=== PATIENT | male | born 1965 | race Hispanic/Latino ===

== ENCOUNTER 2023-04-04 11:01 | Emergency (ER) | payer OTHER ==
[~2023-04-04] VITALS: Ht 172.7 cm; Wt 71.7 kg
[2023-04-04] MEDS ORDERED: 0.9%NACL 1000ML 1,000 ML IV ONE (11:30)
[2023-04-04] MEDS ORDERED: ONDANSETRON 4MG INJ IVP ONE (11:30)
[2023-04-04] MEDS ORDERED: MORPHINE 4 MG SYG IVP ONE (11:30)
[2023-04-04 11:57] LABS: BASOPHILS # (AUTO) 0.02 K/uL (0.00-0.20); BASOPHILS % (AUTO) 0.5 % (0.0-5.0); EOSINOPHILS # (AUTO) 0.02 K/uL (0.00-0.70); EOSINOPHILS % (AUTO) 0.5 % (0.0-8.0); HEMATOCRIT 42.3 % (42-54); IMMATURE GRANULOCYTE ABSOLUTE 0.01 K/uL (0-1); LYMPHOCYTES # (AUTO) 1.1 K/uL (1.0-4.8); MEAN CORPUSCULAR HEMOGLOBIN 30.7 pg (27.0-33.0); MEAN CORPUSCULAR HGB CONC 33.6 g/dL (32.0-36.0); MEAN CORPUSCULAR VOLUME 91.6 fL (79-99); MONOCYTES # (AUTO) 0.6 K/uL (0.1-1.0); NEUTROPHILS # (AUTO) 2.4 K/uL (1.8-7.7); NEUTROPHILS % (AUTO) 58.8 % (40.0-77.0); PLATELET COUNT (AUTO) 210 K/uL (130-400); RED BLOOD CELL COUNT(AUTO) 4.62 MIL/uL (4.50-6.20); WHITE BLOOD COUNT (AUTO) 4.1 K/uL (4.8-10.8)
[2023-04-04 12:12] LABS: ALBUMIN 4.1 g/dL (3.5-5.0); BILIRUBIN,TOTAL 0.7 mg/dL (0.2-1.0); POTASSIUM 3.6 mmol/L (3.5-5.1); TOTAL PROTEIN, SERUM 8.4 g/dL (6.0-8.3)
[2023-04-04 13:02] LABS: ADD UA MICROSCOPIC YES; APPEARANCE,URINE CLEAR (CLEAR); BILIRUBIN,URINE NEGATIVE (NEGATIVE); COLOR,URINE YELLOW (YELLOW); GLUCOSE, URINE (UA) NEGATIVE (NEGATIVE); KETONES,URINE NEGATIVE (NEGATIVE); LEUKOCYTE ESTERASE ,URINE NEGATIVE Leu/uL (NEGATIVE); NITRATE,URINE NEGATIVE (NEGATIVE); OCCULT BLOOD,URINE LARGE (NEGATIVE); PROTEIN,URINE 10 mg/dL (NEGATIVE); UROBILINOGEN,URINE 0.2 mg/dL (0.2-1.0)
[2023-04-04 13:04] LABS: BACTERIA,URINE RARE /HPF (None Seen); MUCUS,URINE RARE LPF (None Seen); RBC,URINE TNTC /HPF (0-1); SQUAMOUS EPITHELIAL CELL,UR RARE /HPF (0-2); WBC,URINE 0-1 /HPF (0-1)
[2023-04-04] MEDS ORDERED: ACET-2893 PO (15:43)
[2023-04-04] MEDS ORDERED: TAMS-1 PO (15:43)
[2023-04-04] MEDS ORDERED: LISI10TA24 PO (15:44)
[2023-04-04 16:00] VITALS: BP 154/91; PULSE 70; RESP 20; O2SAT 99
[2023-04-04] MEDS ORDERED: TAMSULOSIN HCL 0.4 MG CAP.ER.24H PO ONE (16:00)
== END 2023-04-04 17:08 | disposition home or self-care (01) ==
LOC: EDH 11:01
DX: N20.0 Calculus of kidney (principal); I10 Essential (primary) hypertension
CPT/HCPCS: 99285; 74176; 96374; 96361; 96375; 80053; 85025; 81001; 36415; J7030; J2405; J2270

== ENCOUNTER 2023-10-28 02:42 | Emergency (ER) | payer OTHER ==
[~2023-10-28] VITALS: Ht 172.7 cm; Wt 68.0 kg
[~2023-10-28 02:42] MED LIST: ACET-2893 PO; LISI10TA24 PO; TAMS-1 PO
[2023-10-28] MEDS: ACETAMINOPHEN 325 MG TAB PO ONE (04:36)
[2023-10-28 04:41] LABS: BASOPHILS # (AUTO) 0.02 K/uL (0.00-0.20); BASOPHILS % (AUTO) 0.2 % (0.0-5.0); HEMATOCRIT 43.7 % (42-54); IMMATURE GRANULOCYTE ABSOLUTE 0.03 K/uL (0-1); LYMPHOCYTES # (AUTO) 1.3 K/uL (1.0-4.8); LYMPHOCYTES % (AUTO) 13.7 % (21.0-51.0); MEAN CORPUSCULAR HEMOGLOBIN 30.5 pg (27.0-33.0); MEAN CORPUSCULAR HGB CONC 34.1 g/dL (32.0-36.0); MEAN CORPUSCULAR VOLUME 89.4 fL (79-99); MONOCYTES # (AUTO) 0.8 K/uL (0.1-1.0); MONOCYTES % (AUTO) 8.7 % (3.0-13.0); NEUTROPHILS # (AUTO) 7.5 K/uL (1.8-7.7); NEUTROPHILS % (AUTO) 77.1 % (40.0-77.0); PLATELET COUNT (AUTO) 204 K/uL (130-400); RED BLOOD CELL COUNT(AUTO) 4.89 MIL/uL (4.50-6.20); WHITE BLOOD COUNT (AUTO) 9.7 K/uL (4.8-10.8)
[2023-10-28 04:52] LABS: CREATININE 1.1 mg/dL (0.5-1.3); POTASSIUM 5.1 mmol/L (3.5-5.1)
[2023-10-28] MEDS: KETOROLAC 30MG VIAL (30MG/ML) IVP ONE (05:50)
[2023-10-28] MEDS: SOLU-MEDROL 125MG VIAL IVP ONE (05:50)
[2023-10-28] MEDS: CLINDAMYCIN IVPB 900MG/50ML 50 ML IV ONE (05:50)
[2023-10-28 07:27] VITALS: BP 132/76; PULSE 68; RESP 16; O2SAT 98
[2023-10-28] MEDS ORDERED: OXYC-38 PO (08:34)
[2023-10-28] MEDS ORDERED: PERID15L MM (08:34)
[2023-10-28] MEDS ORDERED: CLIN-141 PO (08:34)
== END 2023-10-28 08:58 | disposition home or self-care (01) ==
LOC: EDH 02:42
DX: K08.9 Disorder of teeth and supporting structures, unspecified (principal); J32.0 Chronic maxillary sinusitis; K05.30 Chronic periodontitis, unspecified; I10 Essential (primary) hypertension; Z79.899 Other long term (current) drug therapy; Z98.890 Other specified postprocedural states
CPT/HCPCS: 99285; 96365; 70486; 96375; 80048; 85025; 36415; J2919; J1885; J3490

== ENCOUNTER 2024-06-15 02:36 | Emergency (ER) | payer SELFPAY ==
[~2024-06-15] VITALS: Ht 170.2 cm; Wt 72.6 kg
[~2024-06-15 02:36] MED LIST changes: +CLIN-141 PO; +OXYC-38 PO; +PERID15L MM
[2024-06-15] MEDS ORDERED: AMLO-257 PO (04:13)
--- NOTE | 2024-06-15 04:14 | ERN ---
General Chief Complaint: Hypertension Stated Complaint: HYPERTENSION Time Seen by MD: 02:50 History of Present Illness Initial Comments 58M BIB EMS for concern for hypertension. Patient reports hx of HTN, but has been without hypertension meds for over a year. He currently has no complaints. BP 160/100 per EMS. Patient asymptomatic. Of note, patient is homeless and presents with an outside temp of 40F. Patient reports that his main objective is to get out of the cold tonight. Allergies: Coded Allergies: No Known Drug Allergies (Unverified Allergy, Unknown, 04/04/23) Home Meds Active Scripts Oxycodone HCl/Acetaminophen (Percocet 5-325 mg Tablet) 5 Mg-325 Mg Tablet, 1 EACH PO Q6H for pain, #16 TAB 0 Refills Prov:DAIANA BRITTON MD 10/28/23 Chlorhexidine Gluconate (Peridex Oral Rinse) 0.12 % Mwsh, 15 ML MM BID, #60 APPL Prov:DAIANA BRITTON MD 10/28/23 Clindamycin HCl (Clindamycin HCl) 300 Mg Capsule, 1 CAP PO QID for 10 Days, #40 CAP 0 Refills Prov:DAIANA BRITTON MD 10/28/23 Lisinopril (Lisinopril) 10 Mg Tablet, 1 TAB PO DAILY for 30 Days, #30 TAB 0 Refills Prov:AUBREY HENDERSON 04/04/23 Acetaminophen (Acetaminophen ER) 650 Mg Tablet.er, 650 MG PO TID, #30 TAB Prov:AUBREY HENDERSON 04/04/23 Tamsulosin HCl (Flomax) 0.4 Mg Cap.er.24h, 0.4 MG PO DAILY, #30 CAPSULE. Prov:AUBREY HENDERSON 04/04/23 Past Medical History Past Medical History: Hypertension, Kidney Stone Medical History Other: NOT TAKING ANY MEDICATIONS FOR HYPERTENSION Past Surgical History: None ROS Dictation CONSTITUTIONAL: No chills, no fever, no weakness, no diaphoresis, no malaise. HEAD/FACE: No signs of trauma. EENT: No eye pain, no blurred vision, no tearing, no double vision, no ear pain, no ear discharge, no nose pain, no nasal congestion, no throat pain, no throat swelling, no mouth pain. RESPIRATORY: No cough, no orthopnea, no SOB, no stridor, no wheezing. CARDIOVASCULAR: No chest pain, no edema, no palpitations, no syncope. GASTROINTESTINAL/ABDOMINAL: No abdominal pain, no constipation, no diarrhea, no nausea, no vomiting. GENITOURINARY: No abnormal discharge, no dysuria, no frequent urination, no hematuria. No complaints of pain in the genitals. MUSCULOSKELETAL: No back pain, no gout, no joint pain, no joint swelling, no muscle pain, no muscle stiffness, no neck pain. INTEGUMENTARY: No change in color, no change in hair/nails, no dryness, no lesion, no lumps, no rash. NEUROLOGICAL/PSYCH: No anxiety, not depressed, no emotional problem, no headache, no numbness, no pre-existing deficit, no history of seizures, no tremors, no weakness. HEMATOLOGIC/LYMPHATIC: Not anemic, no history of blood clots, no apparent bleeding, no bruising, glands not swollen. All Systems Negative, Except as Noted. Physical Exam Physical Exam Dictation VITAL SIGNS: Reviewed. GENERAL APPEARANCE: Alert, oriented x3, no acute distress. HEAD AND FACE: Non-traumatic. EYES: PERRL, pink conjunctivas, eyelid no trauma, anterior chamber clear. EARS: Pinnas intact and no signs of trauma or erythema. Ear canals clear and no discharge. TMs no erythema. NOSE: No discharge, no bleeding. OROPHARYNX: Mouth normal, teeth no caries, tongue pink. Pharynx clear, no erythema. Tonsils no exudates, no abscesses noted. Mucous membrane moist. NECK: Supple, non-tender, no thyromegaly, no masses, no JVD, no bruits. BREAST: Deferred. CHEST: No tenderness, no crepitus, no paradoxical movement, no retractions. LUNGS: Clear, well-ventilated, symmetric, no rales, no wheezing, no rhonchi, no stridor, good breath sounds bilaterally. HEART: Regular rate, regular rhythm, no murmur, no gallops. VASCULAR: No peripheral edema. ABDOMEN: Soft, positive bowel sounds, nondistended, no guarding, nontender, no rebound, no masses no hepatomegaly, no splenomegaly, no Herrera's sign, no hernias. RECTAL: Deferred. GENITAL: Deferred. NEUROLOGICAL: Normal speech, gross motor function intact, gross sensory function intact. MUSCULOSKELETAL: Neck nontender, full range of motion, back nontender, full range of motion. EXTREMITIES: Nontender, full range of motion. SKIN: Color pink, dry, no turgor, no rash, no lacerations, no abrasions, no contusions. LYMPHATICS: Deferred. MDM CC: Concern for hypertension Historian: Patient Limitations by social determinants of health: Homeless, uninsured Differential diagnosis: Asymptomatic hypertension secondary gain by getting it with a cold No labs or imaging indicated. Patient was asymptomatic with a normal clinical exam. His blood pressure was 160/55 Patient was warmed up here in the ER. We will discharge with a prescription for amlodipine. ED Course Vital Signs Date Time Temp Pulse Resp B/P (MAP) Pulse Ox O2 Delivery O2 Flow Rate FiO2 06/15/24 02:45 98.1 78 18 160/55 98 Room Air* 0 21 06/15/24 02:37 97.3 83 16 189/76 98 Room Air 0 DX & DISP Disposition: Discharge Departure Impression: Primary Impression: Hypertension Condition: Stable Scripts Amlodipine Besylate (Amlodipine Besylate) 5 Mg Tablet 1 TAB PO DAILY for 30 Days, #30 TAB 0 Refills Prov: GEMMA MEZA DO 06/15/24 Additional Instructions: I've prescribed amlodipine for your high blood pressure. Take daily. Follow up with a primary provider. Return to the emergency department as needed. Referrals: SELF,REFERRAL (PCP) GEMMA MEZA DO Jun 15, 2024 04:14
[2024-06-15 06:17] VITALS: BP 145/62; PULSE 75; RESP 18; TEMP 98.2; O2SAT 98
== END 2024-06-15 06:45 | disposition home or self-care (01) ==
LOC: EDH 02:36
DX: I10 Essential (primary) hypertension (principal); Z59.00 Homelessness unspecified; Z59.71 Insufficient health insurance coverage; Z79.899 Other long term (current) drug therapy
CPT/HCPCS: 99283

== ENCOUNTER 2024-09-10 08:26 | Emergency (ER) | payer SELFPAY ==
[~2024-09-10] VITALS: Ht 172.7 cm; Wt 70.3 kg
[~2024-09-10 08:26] MED LIST changes: +AMLO-257 PO; -TAMS-1 PO; +TAMS-55 PO
--- NOTE | 2024-09-10 10:06 | HMCIMG ---
PORTABLE CHEST RADIOGRAPH INDICATION: SOB COMPARISON: None FINDINGS: Heart size is normal. The pulmonary vascularity and masoud appear normal. No abnormal pulmonary parenchymal opacity or consolidation identified. Left hemidiaphragm is slightly elevated. No significant pleural effusion noted. No pneumothorax detected. IMPRESSION: No radiographic evidence for any acute cardiopulmonary process.
[2024-09-10 10:09] LABS: BASOPHILS # (AUTO) 0.02 K/uL (0.00-0.20); BASOPHILS % (AUTO) 0.6 % (0.0-5.0); EOSINOPHILS # (AUTO) 0.02 K/uL (0.00-0.70); EOSINOPHILS % (AUTO) 0.6 % (0.0-8.0); HEMATOCRIT 42.5 % (42-54); LYMPHOCYTES # (AUTO) 1.1 K/uL (1.0-4.8); MEAN CORPUSCULAR HEMOGLOBIN 29.5 pg (27.0-33.0); MEAN CORPUSCULAR HGB CONC 32.9 g/dL (32.0-36.0); MEAN CORPUSCULAR VOLUME 89.5 fL (79-99); MONOCYTES # (AUTO) 0.5 K/uL (0.1-1.0); MONOCYTES % (AUTO) 13.6 % (3.0-13.0); NEUTROPHILS # (AUTO) 1.8 K/uL (1.8-7.7); NEUTROPHILS % (AUTO) 54.2 % (40.0-77.0); PLATELET COUNT (AUTO) 218 K/uL (130-400); RED BLOOD CELL COUNT(AUTO) 4.75 MIL/uL (4.50-6.20); RED CELL DISTRIBUTION WIDTH 12.8 % (11.0-15.5); WHITE BLOOD COUNT (AUTO) 3.4 K/uL (4.8-10.8)
[2024-09-10 10:10] LABS: POTASSIUM 4.1 mmol/L (3.5-5.1)
[2024-09-10 10:35] LABS: B-TYPE NATRIURETIC PEPTIDE 64 pg/mL (0-100)
[2024-09-10] MEDS ORDERED: PANT40TA55 PO (10:44)
--- NOTE | 2024-09-10 10:44 | ERN ---
General Chief Complaint: Shortness of Breath Stated Complaint: SOB Time Seen by MD: 08:38 Source: patient History of Present Illness Initial Comments PATIENT IS A 58-YEAR-OLD MALE COMING IN TO BE EVALUATED FOR SHORTNESS OF BREATH. PATIENT STATES THAT THE SHORTNESS OF BREATH IS NOT PRESENT ALL THE TIME AND STATES THAT IT FLUCTUATES IN INTENSITY. PATIENT HAS NO OTHER COMPLAINTS. Allergies: Coded Allergies: No Known Drug Allergies (Unverified Allergy, Unknown, 04/04/23) Home Meds Active Scripts Amlodipine Besylate (Amlodipine Besylate) 5 Mg Tablet, 1 TAB PO DAILY for 30 Days, #30 TAB 0 Refills Prov:GEMMA MEZA DO 06/15/24 Oxycodone HCl/Acetaminophen (Percocet 5-325 mg Tablet) 5 Mg-325 Mg Tablet, 1 EACH PO Q6H for pain, #16 TAB 0 Refills Prov:DAIANA BRITTON MD 10/28/23 Chlorhexidine Gluconate (Peridex Oral Rinse) 0.12 % Mwsh, 15 ML MM BID, #60 APPL Prov:DAIANA BRITTON MD 10/28/23 Clindamycin HCl (Clindamycin HCl) 300 Mg Capsule, 1 CAP PO QID for 10 Days, #40 CAP 0 Refills Prov:DAIANA BRITTON MD 10/28/23 Lisinopril (Lisinopril) 10 Mg Tablet, 1 TAB PO DAILY for 30 Days, #30 TAB 0 Refills Prov:AUBREY HENDERSON 04/04/23 Acetaminophen (Acetaminophen ER) 650 Mg Tablet.er, 650 MG PO TID, #30 TAB Prov:AUBREY HENDERSON 04/04/23 Tamsulosin HCl (Flomax) 0.4 Mg Cap.er.24h, 0.4 MG PO DAILY, #30 CAPSULE. Prov:AUBREY HENDERSON 04/04/23 Past Medical History Past Medical History: CVA, Hypertension, Other Medical History Other: HEPATITIS C Past Surgical History: Other Surgical History Other: EYE SX ROS Dictation CONSTITUTIONAL: NO CHILLS, NO FEVER, NO WEAKNESS, NO DIAPHORESIS, NO MALAISE. HEAD/FACE: NO SIGNS OF TRAUMA. EENT: NO EYE PAIN, NO BLURRED VISION, NO TEARING, NO DOUBLE VISION, NO EAR PAIN, NO EAR DISCHARGE, NO NOSE PAIN, NO NASAL CONGESTION, NO THROAT PAIN, NO THROAT SWELLING, NO MOUTH PAIN. RESPIRATORY: NO COUGH, NO ORTHOPNEA, NO SOB, NO STRIDOR, NO WHEEZING. CARDIOVASCULAR: NO CHEST PAIN, NO EDEMA, NO PALPITATIONS, NO SYNCOPE. GASTROINTESTINAL/ABDOMINAL: NO ABDOMINAL PAIN, NO CONSTIPATION, NO DIARRHEA, NO NAUSEA, NO VOMITING. GENITOURINARY: NO ABNORMAL DISCHARGE, NO DYSURIA, NO FREQUENT URINATION, NO HEMATURIA. NO COMPLAINTS OF PAIN IN THE GENITALS. MUSCULOSKELETAL: NO BACK PAIN, NO GOUT, NO JOINT PAIN, NO JOINT SWELLING, NO MUSCLE PAIN, NO MUSCLE STIFFNESS, NO NECK PAIN. INTEGUMENTARY: NO CHANGE IN COLOR, NO CHANGE IN HAIR/NAILS, NO DRYNESS, NO LESION, NO LUMPS, NO RASH. NEUROLOGICAL/PSYCH: NO ANXIETY, NOT DEPRESSED, NO EMOTIONAL PROBLEM, NO HEADACHE, NO NUMBNESS, NO PRE-EXISTING DEFICIT, NO HISTORY OF SEIZURES, NO TREMORS, NO WEAKNESS. HEMATOLOGIC/LYMPHATIC: NOT ANEMIC, NO HISTORY OF BLOOD CLOTS, NO APPARENT BLEEDING, NO BRUISING, GLANDS NOT SWOLLEN. ALL SYSTEMS NEGATIVE, EXCEPT NOTED. Physical Exam Physical Exam Dictation VITAL SIGNS: REVIEWED. GENERAL APPEARANCE: ALERT, ORIENTED X3, NO ACUTE DISTRESS, OBESE. HEAD AND FACE: NON-TRAUMATIC. EYES: PERRL, PINK CONJUNCTIVAS, EYELID NO TRAUMA, ANTERIOR CHAMBER CLEAR. EARS: PINNAS INTACT AND NO SIGNS OF TRAUMA OR ERYTHEMA. EAR CANALS CLEAR AND NO DISCHARGE. TMS NO ERYTHEMA. NOSE: NO DISCHARGE, NO BLEEDING. OROPHARYNX: MOUTH NORMAL, TEETH NO CARIES, TONGUE PINK. PHARYNX CLEAR, NO ERYTHEMA. TONSILS NO EXUDATES, NO ABSCESSES NOTED. MUCOUS MEMBRANE MOIST. NECK: SUPPLE, NON-TENDER, NO THYROMEGALY, NO MASSES, NO JVD, NO BRUITS. BREAST: DEFERRED. CHEST: NO TENDERNESS, NO CREPITUS, NO PARADOXICAL MOVEMENT, NO RETRACTIONS. LUNGS: CLEAR, WELL-VENTILATED, SYMMETRIC, NO RALES, NO WHEEZING, NO RHONCHI, NO STRIDOR, GOOD BREATH SOUNDS BILATERALLY. HEART: REGULAR RATE, REGULAR RHYTHM, NO MURMUR, NO GALLOPS. VASCULAR: NO PERIPHERAL EDEMA. ABDOMEN: SOFT, POSITIVE BOWEL SOUNDS, NONDISTENDED, NO GUARDING, NONTENDER, NO REBOUND, NO MASSES NO HEPATOMEGALY, NO SPLENOMEGALY, NO CORBIN'S SIGN, NO HERNIAS. RECTAL: DEFERRED. GENITAL: DEFERRED. NEUROLOGICAL: NORMAL SPEECH, GROSS MOTOR FUNCTION INTACT, GROSS SENSORY FUNCTION INTACT. MUSCULOSKELETAL: NECK NONTENDER, FULL RANGE OF MOTION, BACK NONTENDER, FULL RANGE OF MOTION. EXTREMITIES: NONTENDER, FULL RANGE OF MOTION. SKIN: COLOR PINK, DRY, NO TURGOR, NO RASH, NO LACERATIONS, NO ABRASIONS, NO CONTUSIONS. LYMPHATICS: DEFERRED. Results Laboratory and Microbiology Lab and Micro Result Laboratory Tests Test 09/10/24 09:54 White Blood Count 3.4 K/uL (4.8-10.8) L Red Blood Count 4.75 MIL/uL (4.50-6.20) Hemoglobin 14.0 g/dL (14.0-18.0) Hematocrit 42.5 % (42-54) Mean Corpuscular Volume 89.5 fL (79-99) Mean Corpuscular Hemoglobin 29.5 pg (27.0-33.0) Mean Corpuscular Hemoglobin Concent 32.9 g/dL (32.0-36.0) Red Cell Distribution Width 12.8 % (11.0-15.5) Platelet Count 218 K/uL (130-400) Mean Platelet Volume 9.1 fL (7.5-10.5) Immature Granulocyte % (Auto) 0.0 % (0-1) Neutrophils (%) (Auto) 54.2 % (40.0-77.0) Lymphocytes (%) (Auto) 31.0 % (21.0-51.0) Monocytes (%) (Auto) 13.6 % (3.0-13.0) H Eosinophils (%) (Auto) 0.6 % (0.0-8.0) Basophils (%) (Auto) 0.6 % (0.0-5.0) Neutrophils # (Auto) 1.8 K/uL (1.8-7.7) Lymphocytes # (Auto) 1.1 K/uL (1.0-4.8) Monocytes # (Auto) 0.5 K/uL (0.1-1.0) Eosinophils # (Auto) 0.02 K/uL (0.00-0.70) Basophils # (Auto) 0.02 K/uL (0.00-0.20) Absolute Immature Granulocyte (auto 0.00 K/uL (0-1) Nucleated Red Blood Cells 0.0 % (0.0-0.19) Sodium Level 139 mmol/L (136-145) Potassium Level 4.1 mmol/L (3.5-5.1) Chloride Level 102 mmol/L (101-111) Carbon Dioxide Level 33 mmol/L (21-32) H Blood Urea Nitrogen 10 mg/dL (7-18) Creatinine 1.0 mg/dL (0.5-1.3) Glomerular Filtration Rate Calc 86 mL/min (>90) Random Glucose 97 mg/dL (70-105) Total Calcium 8.6 mg/dL (8.5-10.1) Troponin I High Sensitivity 7 ng/L (4-75) B-Type Natriuretic Peptide 64 pg/mL (0-100) Labs Reviewed?: Yes EKG/XRAY/US/CT/MRI EKG Comment 09/10/2024 TIME 8:46 A.M. VENTRICULAR RATE 70 SINUS RHYTHM OR [address] WAVE ELEVATION OR [place]PRESSION [place] [address] IMAGING REPORT Signed PATIENT: JAIME GO MR#: [id number] : 1965 SEX: M AGE: 58 LOCATION: [facility] ORDER 0 STATUS: REG ER REPORT#: [id number] SERVICE [id number] REASON: SOB ORDERING PHYSICIAN: CARLOS HEALY MD PROCEDURE: CXR1VW - CHEST 1VW PORTABLE CHEST RADIOGRAPH INDICATION: SOB COMPARISON: None FINDINGS: Heart size is normal. The pulmonary vascularity and masoud appear normal. No abnormal pulmonary parenchymal opacity or consolidation identified. Left hemidiaphragm is slightly elevated. No significant pleural effusion noted. No pneumothorax detected. IMPRESSION: No radiographic evidence for any acute cardiopulmonary process. DICTATED BY: CHELSEA COYLE MD DATE: 09/10/24 1004 ELECTRONICALLY SIGNED BY: CHELSEA COYLE MD DATE: 09/10/24 1006 [facility] MDM: DIFFERENTIAL DIAGNOSIS: GERD, GASTRITIS, RATIONALE: TESTS CONSIDERED AND ORDERED SECONDARY TO SHARED DECISION MAKING INCLUDE: PREVIOUS OUTSIDE RECORDS REVIEWED: OLD ER VISITS. PATIENT IS A 58-YEAR-OLD MALE COMING IN TO BE EVALUATED FOR EPISODIC SHORTNESS OF BREATH. VITAL SIGNS HAS BEEN STABLE. LABORATORY WORKUP NEGATIVE FOR ACUTE FINDINGS. PATIENT WILL BE DISCHARGED IN STABLE CONDITION WITH A DIAGNOSIS OF GASTRITIS. SO I ADVISED HIM APPROPRIATE FOLLOW UP WITH PCP IN 1-2 DAYS. ED Course Orders Procedure Category Date Status Time Cbc With Differential LAB 09/10/24 Complete 08:39 B-Type Natriuretic LAB 09/10/24 Complete Peptide 08:39 Chest 1vw RAD 09/10/24 Resulted 08:39 12 Lead Ekg Tracing- EKG 09/10/24 Logged Technical 08:39 Troponin I High LAB 09/10/24 Complete Sensitivity 08:39 Basic Metabolic Panel LAB 09/10/24 Complete 08:39 Vital Signs Date Time Temp Pulse Resp B/P (MAP) Pulse Ox O2 Delivery O2 Flow Rate FiO2 09/10/24 08:29 97.9 72 16 144/88 100 Room Air 0 DX & DISP Disposition: Discharge Departure Impression: Primary Impression: GERD (gastroesophageal reflux disease) Condition: Stable Scripts Pantoprazole Sodium (Protonix) 40 Mg Ectab 1 TAB PO DAILY for 30 Days, #30 TAB 0 Refills Prov: CARLOS HEALY MD 09/10/24 Additional Instructions: FOLLOW-UP WITH PRIMARY CARE PROVIDER IN 1 TO 2 DAYS. TAKE MEDICATIONS DIRECTED HERE IN THE EMERGENCY ROOM. OKAY TO CONTINUE HOME MEDICATIONS UNLESS OTHERWISE DISCUSSED DURING YOUR VISIT IN THE EMERGENCY ROOM TODAY. RETURN TO YOUR NEAREST EMERGENCY ROOM IF SYMPTOMS WORSEN OR IF THERE IS NO IMPROVEMENT. CALL 911 IF YOU NEED IMMEDIATE ASSISTANCE. TAKE TYLENOL [id number] NEEDED AND IF NO CONTRAINDICATIONS ARE PRESENT. INCREASE ORAL HYDRATION. A WOUND CULTURE OR URINE CULTURE WAS ORDERED HERE IN THE EMERGENCY ROOM DEPARTMENT PLEASE FOLLOW-UP WITH PRIMARY CARE PROVIDER AND ADVISE THEM TO GET REPEAT PORTS FROM OUR FACILITY. IF YOU HAD ANY DORI WRAP/SPLINTS THAT WERE APPLIED HERE, PLEASE DO NOT REMOVE THEM UNTIL YOU SEE YOUR PRIMARY CARE OR SPECIALTY. REFERRALS: Referrals: SELF,REFERRAL (PCP) KEVIN PRADO MD Time of Disposition: 10:42 CARLOS HEALY MD Sep 10, 2024 10:44
[2024-09-10 10:50] VITALS: BP 137/85; PULSE 70; RESP 16; TEMP 97.9; O2SAT 100
--- NOTE | 2024-09-10 16:57 | EKG ---
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
== END 2024-09-10 10:59 | disposition home or self-care (01) ==
LOC: EDH 08:26
DX: K21.9 Gastro-esophageal reflux disease without esophagitis (principal); I10 Essential (primary) hypertension; Z79.899 Other long term (current) drug therapy; Z86.73 Personal history of transient ischemic attack (TIA), and cerebral infarction without residual deficits; Z98.890 Other specified postprocedural states
CPT/HCPCS: 36415; 71045; 80048; 83880; 84484; 85025; 93005; 99285